=== PATIENT | female | born 2000 | race Caucasian/White ===

== ENCOUNTER 2019-03-16 10:18 | Emergency (ER) | payer MEDICAID ==
[~2019-03-16] VITALS: Ht 160 cm; Wt 75.0 kg
[~2019-03-16 10:18] MED LIST: CEFX1I IV
[2019-03-16 10:19] VITALS: BP 128/92
== END 2019-03-16 11:45 | disposition home or self-care (01) ==
LOC: EMS 10:19
DX: Z45.2 Encounter for adjustment and management of vascular access device (principal); F12.90 Cannabis use, unspecified, uncomplicated; F17.210 Nicotine dependence, cigarettes, uncomplicated